=== PATIENT | male | born 1985 | race Caucasian/White ===

== ENCOUNTER → 2017-03-07 | Outpatient (CLI) | payer BC | LOC: MW.CHRC 11:34 | PROVIDERS: ATTEND Family Medicine | DX: F32.9 Major depressive disorder, single episode, unspecified (principal); F41.9 Anxiety disorder, unspecified; R68.82 Decreased libido; R63.5 Abnormal weight gain; E78.5 Hyperlipidemia, unspecified ==

== ENCOUNTER 2019-02-12 11:12 | Emergency (ER) | payer OTHER, BC ==
[2019-02-12 11:39] VITALS: BP 136/87
[2019-02-12] MEDS ORDERED: Diphtheria,Pertussis(Acell),Tetanus Vaccine 0.5 ML Syringe IM ONE (12:07)
--- NOTE | 2019-02-12 12:08 | EDM.PDOC ---
ED HPI GENERAL MEDICAL PROBLEM - General Chief Complaint: Laceration Stated Complaint: CUT ON HAND Time Seen by Provider: 02/12/19 11:35 Source of Information: Reports: Patient History Limitations: Reports: No Limitations - History of Present Illness INITIAL COMMENTS - FREE TEXT/NARRATIVE: HISTORY AND PHYSICAL: History of present illness: Patient is a 34-year-old male presents to the ED today with concern of a left hand laceration that occurred just prior to arrival to the ED. Patient states he was working when he was doing with razors that cut the palm of his hand. He denies puncture wound injury. Patient states he is not up-to-date on his tetanus vaccine. Patient denies any other trauma prior to this area. Patient denies fever, chills, chest pain, shortness of breath, or cough. Denies headache, neck stiff ness, change in vision, syncope, or near syncope. Denies nausea, vomiting, abdominal pain, diarrhea, constipation, or dysuria. Has not noted any blood in urine or stool. Patient has been eating and drinking appropriately. Patient health history. Review of systems: As per history of present illness and below otherwise all systems reviewed and negative. Past medical history: As per history of present illness and as reviewed below otherwise noncontributory. Surgical history: As per history of present illness and as reviewed below otherwise noncontributory. Social history: See social history for further information Family history: As per history of present illness and as reviewed below otherwise noncontributory. Physical exam: General: Patient is alert, oriented, and in no acute distress. Patient sitting comfortably on exam table. HEENT: Atraumatic, normocephalic, pupils equal and reactive bilaterally, negative for conjunctival pallor or scleral icterus, mucous membranes moist, TMs normal bilaterally, throat clear, neck supple, nontender, trachea midline. No drooling or trismus noted. No meningeal signs. No hot potato voice noted. Lungs: Clear to auscultation, breath sounds equal bilaterally, chest nontender. Heart: S1S2, regular rate and rhythm without overt murmur Abdomen: Soft, nondistended, nontender. Negative for masses or hepatosplenomegaly. Negative for costovertebral tenderness. Pelvis: Stable nontender. Genitourinary: Deferred. Rectal: Deferred. Skin: Intact, warm, dry. No lesions or rashes noted. Extremities: There is a 4 cm superficial laceration of the volar aspect of the left hand just over the thenar muscle. Minimal bleeding. Radial pulses grossly intact of left hand. Capillary refill less than 2 seconds of left hand. Patient has full range of motion of all digits of left hand and wrist. Neurovascular unremarkable. Neuro: Awake, alert, oriented. Cranial nerves II through XII unremarkable. Cerebellum unremarkable. Motor and sensory unremarkable throughout. Exam nonfocal. Notes: On exam, there is a superficial laceration to the volar aspect of the left hand. Discussed the importance of follow-up with a primary care provider. Supportive care measures were reviewed and discussed. Voices understanding and is agreeable to plan of care. Denies any further questions or concerns at this time. Diagnostics: None Therapeutics: tdap, sutures Prescription: Non Impression: Hand laceration, left Plan: 1. Keep the area clean and dry. Continue to monitor for signs of infection as discussed. Sutures to be removed in 7-10 days. 2. Tylenol and/or ibuprofen as directed and as needed for pain management and discomfort. 3. Please follow-up with your primary care provider as discussed. Return to the ED as needed and as discussed. Definitive disposition and diagnosis as appropriate pending reevaluation and review of above. Left Hand Pain Score (Numeric/FACES): 8 - Related Data Allergies Allergy/AdvReac Type Severity Reaction Status Date / Time Sulfa (Sulfonamide Allergy Itching Verified 02/12/19 11:32 Antibiotics) Home Meds: Home Meds . [No Known Home Meds] 02/12/19 [History] Past Medical History HEENT History: Reports: None Cardiovascular History: Reports: None Respiratory History: Reports: None Gastrointestinal History: Reports: GERD Genitourinary History: Reports: None Musculoskeletal History: Reports: None Neurological History: Reports: None Psychiatric History: Reports: None Endocrine/Metabolic History: Reports: None Hematologic History: Reports: None Oncologic (Cancer) History: Reports: None - Infectious Disease History Infectious Disease History: Reports: Chicken Pox - Past Surgical History GI Surgical History: Reports: Appendectomy Social & Family History - Family History Family Medical History: Noncontributory - Tobacco Use Smoking Status *Q: Current Every Day Smoker Years of Tobacco use: 18 Packs/Tins Daily: 1 - Caffeine Use Caffeine Use: Reports: Coffee - Recreational Drug Use Recreational Drug Use: No ED ROS GENERAL - Review of Systems Review Of Systems: ROS reveals no pertinent complaints other than HPI. ED EXAM, SKIN/RASH Exam: See Below (See dictation) ED SKIN PROCEDURES - Laceration/Wound Repair Left Hand Lac/Wound length In cm: 4 Appearance: Superficial, Linear, Mildly Contaminated Distal NVT: Neuro & Vascular Intact, No Tendon Injury Anesthetic Type: Local Local Anesthesia - Lidocaine (Xylocaine): 1% Plain Local Anesthetic Volume: 5cc Skin Prep: Chlorhexidine (Hibiciens), Providone-Iodine (Betadine) Saline Irrigation (cc's): 30 Exploration/Debridement/Repair: Wound Explored, In a Bloodless Field, Explored to Base, No Foreign Material Found Closed with: Sutures Suture Size: 4-0 # of Sutures: 7 Suture Type: Interrupted, Other (ethilon) Drain Placement: No Sterile Dressing Applied: Nurse Tetanus Status Addressed: Yes Complications: No Course - Vital Signs Last Recorded V/S: Last Vital Signs Temp 36.7 C 02/12/19 11:32 Pulse 94 02/12/19 11:32 Resp 17 02/12/19 11:32 BP 136/87 02/12/19 11:32 Pulse Ox 97 02/12/19 11:32 - Orders/Labs/Meds Orders: Active Orders 24 hr Category Date Time Status Vaccines to be Administered [RC] PER UNIT ROUTINE Care 02/12/19 12:07 Ordered Meds: Medications Discontinued Medications Generic Name Dose Route Start Last Admin Trade Name Freq PRN Reason Stop Dose Admin Diphtheria/Tetanus/Acell Pertussis 0.5 ml 02/12/19 12:07 02/12/19 12:13 Adacel IM 02/12/19 12:08 0.5 ml .ONCE ONE Administration Lidocaine HCl Confirm 02/12/19 11:42 02/12/19 12:14 Xylocaine-Mpf 1% Administered 02/12/19 11:43 1 mls/hr Dose Administration 5 mls @ as directed .ROUTE .STK-MED ONE Departure - Departure Time of Disposition: 12:08 Disposition: Home, Self-Care 01 Clinical Impression: Hand laceration Qualifiers: Encounter type: initial encounter Foreign body presence: without foreign body Laterality: left Qualified Code(s): S61.412A - Laceration without foreign body of left hand, initial encounter - Discharge Information Instructions: Laceration Care, Adult Referrals: PCP,None [Primary Care Provider] - Forms: ED Department Discharge Additional Instructions: The following information is given to patients seen in the emergency department who are being discharged to home. This information is to outline your options for follow-up care. We provide all patients seen in our emergency department with a follow-up referral. The need for follow-up, as well as the timing and circumstances, are variable depending upon the specifics of your emergency department visit. If you don't have a primary care physician on staff, we will provide you with a referral. We always advise you to contact your personal physician following an emergency department visit to inform them of the circumstance of the visit and for follow-up with them and/or the need for any referrals to a consulting specialist. The emergency department will also refer you to a specialist when appropriate. This referral assures that you have the opportunity for follow-up care with a specialist. All of these measure are taken in an effort to provide you with optimal care, which includes your follow-up. Under all circumstances we always encourage you to contact your private physician who remains a resource for coordinating your care. When calling for follow-up care, please make the office aware that this follow-up is from your recent emergency room visit. If for any reason you are refused follow-up, please contact the [facility] Emergency Department at and asked to speak to the emergency department charge nurse. [facility] [address] [place] [id number] [id number] 1. Keep the area clean and dry. Continue to monitor for signs of infection as discussed. Sutures to be removed in 7-10 days. 2. Tylenol and/or ibuprofen as directed and as needed for pain management and discomfort. 3. Please follow-up with your primary care provider as discussed. Return to the ED as needed and as discussed. - My Orders Last 24 Hours: My Active Orders 02/12/19 12:07 Vaccines to be Administered [RC] PER UNIT ROUTINE - Assessment/Plan Last 24 Hours: My Active Orders 02/12/19 12:07 Vaccines to be Administered [RC] PER UNIT ROUTINE
== END 2019-02-12 12:36 | disposition home or self-care (01) ==
LOC: MW.ED 11:12
DX: S61.412A Laceration without foreign body of left hand, initial encounter (principal); Z23 Encounter for immunization; F17.210 Nicotine dependence, cigarettes, uncomplicated; Z88.2 Allergy status to sulfonamides; W26.8XXA Contact with other sharp object(s), not elsewhere classified, initial encounter
CPT/HCPCS: 12002; 90471; 90715; 99282; J2001

== ENCOUNTER 2022-01-21 08:41 | Emergency (ER) | payer BC, OTHER ==
[2022-01-21] MEDS ORDERED: Diphtheria,Pertussis(Acell),Tetanus Vaccine 0.5 ML Syringe IM ONE (09:09)
[2022-01-21] MEDS ORDERED: Ketorolac 30 MG/ML SDV IM ONE (09:10)
[2022-01-21] MEDS ORDERED: Lidocaine 1% 5 ML VIAL INJECT ONE (09:25)
[2022-01-21] MEDS ORDERED: EPINEPHrine/Lidocaine/Tetracai Topical Gel 3 ML TOP ONE (09:25)
[2022-01-21] MEDS ORDERED: Acetaminophen/HYDROcodone 325-5 MG Tab PO ONE (10:12)
[2022-01-21 11:09] VITALS: BP 120/59; PULSE 72
== END 2022-01-21 11:23 | disposition home or self-care (01) ==
LOC: MW.ED 08:41
DX: S61.412A Laceration without foreign body of left hand, initial encounter (principal); K21.9 Gastro-esophageal reflux disease without esophagitis; Z88.2 Allergy status to sulfonamides; Z86.16 Personal history of COVID-19; Z23 Encounter for immunization; W26.8XXA Contact with other sharp object(s), not elsewhere classified, initial encounter
CPT/HCPCS: 12001; 73130; 90471; 90715; 96372; 99283; A9270; J1885; 99282

== ENCOUNTER 2023-06-21 17:48 | Emergency (ER) | payer BC ==
[2023-06-21] MEDS ORDERED: Ondansetron 4 MG/2 ML SDV IVPUSH ONE (18:34)
[2023-06-21] MEDS ORDERED: Lactated Ringers 1,000 ML IV SCH (18:45)
[2023-06-21 18:48] LABS: BASOPHILS ABSOLUTE AUTO 0.1 K/uL (0.0-0.1); BASOPHILS PERCENT AUTO 0.7 % (0.0-1.5); EOSINOPHILS ABSOLUTE AUTO 0.2 K/uL (0.0-0.7); EOSINOPHILS PERCENT AUTO 1.9 % (0.0-7.0); HEMATOCRIT 42.3 % (38.0-50.0); HEMOGLOBIN 14.3 g/dL (13.0-17.0); LYMPHOCYTES ABSOLUTE AUTO 3.1 K/uL (0.6-2.4); LYMPHOCYTES PERCENT AUTO 32.9 % (16.0-40.0); MEAN CORPUSCULAR HEMOGLOBIN 30.4 pg (27.0-32.0); MEAN CORPUSCULAR HGB CONC 33.8 g/dL (31.0-37.0); MEAN CORPUSCULAR VOLUME 89.8 fL (80.0-98.0); MONOCYTES ABSOLUTE AUTO 0.7 K/uL (0.0-0.8); MONOCYTES PERCENT AUTO 6.9 % (0.0-15.0); NEUTROPHILS ABSOLUTE AUTO 5.5 K/uL (1.4-5.7); NEUTROPHILS PERCENT AUTO 57.6 % (48.0-80.0); NRBC ABSOLUTE 0 K/uL; PLATELET COUNT,PLT 264 K/uL (150-400); RED BLOOD CELL COUNT 4.71 M/uL (4.50-5.90); WHITE BLOOD CELL COUNT,WBC 9.48 K/uL (4.0-11.0)
[2023-06-21 18:50] LABS: BILIRUBIN,URINE NEGATIVE (NEGATIVE); COLOR,URINE YELLOW; GLUCOSE,URINE NEGATIVE (NEGATIVE); KETONES,URINE TRACE mg/dL (NEGATIVE); LEUKOCYTE ESTERASE,URINE NEGATIVE (NEGATIVE); NITRITE,URINE POSITIVE (NEGATIVE); OCCULT BLOOD,URINE TRACE-INTACT (NEGATIVE); PH,URINE 5.5 (5.0-8.0); PROTEIN,URINE NEGATIVE (NEGATIVE); UROBILINOGEN,URINE 0.2 EU/dL (<2.0)
[2023-06-21 19:01] LABS: APPEARANCE,URINE SLT CLOUDY
[2023-06-21 19:12] LABS: A/G RATIO 1.4 (0.9-1.6); ALBUMIN 4.3 g/dL (3.4-5.0); BILIRUBIN TOTAL 0.8 mg/dL (0.2-1.0); CALCIUM 9.4 mg/dL (8.5-10.1); CARBON DIOXIDE,CO2 26.1 mmol/L (21.0-32.0); CREATININE 1.2 mg/dL (0.8-1.3); EST CRCL DRUG DOSING (CG) 86.18 mL/min; POTASSIUM,K 3.9 mmol/L (3.5-5.1); PROTEIN TOTAL,TP 7.4 g/dL (6.4-8.2)
[2023-06-21 19:18] LABS: RBC,URINE 0-5 (0-2/HPF); WBC,URINE 0-2 (0-5/HPF)
[2023-06-21 19:19] LABS: BACTERIA,URINE FEW (NEGATIVE); EPITHELIAL CELLS,URINE RARE (NONE-FEW); HYALINE CASTS,URINE OCCASIONAL (0-2/LPF); MUCUS,URINE MANY (NONE-MOD); SQUAMOUS EPITHELIAL CELLS,UR RARE
[2023-06-21] MEDS ORDERED: Iopamidol 755 MG/ML 500 ML Multipack Bottle IVPUSH ONE (19:34)
[2023-06-21 20:41] VITALS: BP 161/84; PULSE 78
== END 2023-06-21 20:53 | disposition home or self-care (01) ==
LOC: MW.ED 17:48
DX: N39.0 Urinary tract infection, site not specified (principal); F17.210 Nicotine dependence, cigarettes, uncomplicated; Z86.16 Personal history of COVID-19; Z88.2 Allergy status to sulfonamides
CPT/HCPCS: 36415; 74177; 80053; 81001; 83690; 85025; 87086; 96374; 99284; J2405; J7120; Q9967

== ENCOUNTER 2024-12-20 09:23 | Emergency (ER) | payer OTHER, BC ==
[2024-12-20] MEDS: Diphtheria,Pertussis(Acell),Tetanus Vaccine 0.5 ML Syringe IM ONE (10:16)
[2024-12-20] MEDS: Ketorolac 30 MG/ML SDV IM ONE (10:17)
[2024-12-20] MEDS: Acetaminophen 500 MG Tab PO ONE (10:18)
[2024-12-20] MEDS: Lidocaine 1% 10 ML MDV INFILT ONE (10:53)
[2024-12-20] MEDS: Bacitracin Oint 1 GM U/D Packet TOP ONE (12:05)
[2024-12-20 12:08] VITALS: BP 141/66; PULSE 59
== END 2024-12-20 12:09 | disposition home or self-care (01) ==
LOC: MW.ED 09:23
DX: S62.643B Nondisplaced fracture of proximal phalanx of left middle finger, initial encounter for open fracture (principal); S67.22XA Crushing injury of left hand, initial encounter; Z86.16 Personal history of COVID-19; Z90.49 Acquired absence of other specified parts of digestive tract; Z88.2 Allergy status to sulfonamides; Z79.899 Other long term (current) drug therapy; W23.1XXA Caught, crushed, jammed, or pinched between stationary objects, initial encounter; Y99.0 Civilian activity done for income or pay; Z23 Encounter for immunization
CPT/HCPCS: 12001; 73130; 90471; 90715; 96372; 99283; A9270; J1885; J3490